=== PATIENT | female | born 1960 | race Caucasian/White ===

== ENCOUNTER → 2016-09-01 19:30 | Outpatient (CLI) | payer MEDICARE | END | disposition home or self-care (01) | LOC: D.SLEEP 19:30 | DX: G47.33 Obstructive sleep apnea (adult) (pediatric) (principal); R53.83 Other fatigue ==

== ENCOUNTER → 2016-10-01 15:15 | Outpatient (CLI) | payer MEDICARE | END | disposition home or self-care (01) | LOC: D.LAB 15:15 | DX: Z11.1 Encounter for screening for respiratory tuberculosis (principal) ==

== ENCOUNTER → 2018-11-30 13:02 | Outpatient (CLI) | payer MEDICARE | END | disposition home or self-care (01) | LOC: D.RAD 13:00 | PROVIDERS: ATTEND Legal Medicine | DX: R13.10 Dysphagia, unspecified (principal) ==

== ENCOUNTER 2019-05-19 14:27 | Inpatient (IN) | payer MEDICARE ==
[~2019-05-19] VITALS: Ht 157.5 cm; Wt 56.7 kg
[2019-05-19] MEDS ORDERED: CYMBALTA60 MG PEG (14:48)
[2019-05-19] MEDS ORDERED: LEVEMIR IN100 UNITS/ SC (14:59)
[2019-05-19] MEDS ORDERED: STOOL SOFTENER250 MG PEG (14:59)
[2019-05-19] MEDS ORDERED: FERROUS SULFAT325 MG PEG (14:59)
[2019-05-19] MEDS ORDERED: LISINOPRIL30 MG PEG (14:59)
[2019-05-19] MEDS ORDERED: CLARITIN 10 MG10 MG PEG (14:59)
[2019-05-19] MEDS ORDERED: SYNTHROID75 MCG PEG (15:00)
[2019-05-19] MEDS ORDERED: METOPROLOL TART25 MG PEG (15:00)
[2019-05-19] MEDS ORDERED: TRAZODONE HCL150 MG PEG (15:01)
[2019-05-19] MEDS ORDERED: ZOCOR40 MG PEG (15:02)
[2019-05-19] MEDS ORDERED: VITAMIN D5000 UNIT PO (15:02)
[2019-05-19] MEDS ORDERED: ZOCOR20 MG PO (15:02)
[2019-05-19] MEDS ORDERED: ZYPREXA10 MG PEG ×2 (15:02→15:03)
[2019-05-19] MEDS ORDERED: ALBUTEROL1.25 MG/3 INH (15:04)
[2019-05-19] MEDS ORDERED: MAG-OX 400 MG400 MG PEG (15:04)
[2019-05-19] MEDS ORDERED: METFORMIN HCL500 M1 PEG (15:04)
[2019-05-19] MEDS ORDERED: BUSPAR5 MG PO (15:05)
[2019-05-19] MEDS ORDERED: MUCINEX DM ER1 EAC1 PO (15:05)
[2019-05-19] MEDS ORDERED: GABAPENTIN100 MG PEG (15:06)
[2019-05-19] MEDS ORDERED: DEPAKOTE SPRIN125 MG PEG (15:06)
[2019-05-19] MEDS ORDERED: NOVOLOG100 UNIT/1 SC (15:07)
[2019-05-19] MEDS ORDERED: MIRALAX17 GM PEG (15:07)
[2019-05-19] MEDS ORDERED: ULTRAM50 MG PEG (15:08)
[2019-05-19] MEDS ORDERED: ZANAFLEX2 M1 PEG (15:08)
[2019-05-19 16:42] LABS: BASOPHILS 0.1 % (0-2); EOSINOPHILS 0.3 % (0-7); HEMATOCRIT 37.2 % (36.0-48.0); HEMOGLOBIN 12.1 g/dL (12-16); IMMATURE GRANULOCYTES 0.1 % (0-5); LYMPHOCYTES 25.7 % (15-50); MCH 28.5 pg (26.0-34.0); MCHC 32.5 g/dL (31.0-37.0); MCV 87.7 fL (80.0-100.0); MEAN PLATELET VOLUME 9.3 fL (7.4-10.4); MONOCYTES 5.9 % (2-11); NEUTROPHILS 67.9 % (40-80); PLATELET COUNT 215 10x3/uL (130-400); RBC 4.24 10x6/uL (4.00-5.40); RDW 13.6 % (11.5-14.5)
[2019-05-19 16:56] LABS: CALC OSMOLALITY 292 mosm/kg (275-300); CALCIUM 9.3 mg/dL (8.5-10.1); CARBON DIOXIDE 32.6 mmol/L (21.0-32.0); CHLORIDE - SERUM 106 mmol/L (98-107); CREATININE - SERUM 0.6 mg/dL (0.6-1.3); GLUCOSE 144 mg/dL (74-106); POTASSIUM - SERUM 3.7 mmol/L (3.5-5.1); SODIUM 145 mmol/L (136-145); UREA NITROGEN 14 mg/dL (7-18); eGFR NON AFRICAN AMERICAN > 90 mL/min (90-120)
[2019-05-19 16:57] LABS: ALKALINE PHOSPHATASE 76 U/L (46-116); ALT (SGPT) 11 U/L (10-68); BILIRUBIN - TOTAL 0.32 mg/dL (0.2-1.3); PROTEIN - SERUM 6.9 g/dL (6.4-8.2)
--- NOTE | 2019-05-19 17:15 | MORECARE ---
CASE MANAGEMENT DISCHARGE SUMMARY PATIENT: CARO HORTON UNIT: [id number] ADM DATE: 05/19/19 AGE: 59 : 58 SEX: F ROOM/BED: D.2203 AUTHOR: MORENITA NELSON PHYSICIAN: REFERRING PHYSICIAN: STELLA VLAENTINO MD DATE OF SERVICE: 05/19/19 Discharge Plan Patient Name: CARO HORTON Facility: [facility]:[place] : 1960 Planned Disposition: Anticipated Discharge Date: Discharge Date: Expected LOS: Initial Reviewer: [email or web address] Initial Review Date: 05/19/2019 Generated: 05/19/19 6:15 pm Patient Name: CARO HORTON Page [id number] at 0077 All edits/amendments must be made on the electronic document DICTATION DATE: 05/19/191714 QA AUTOMATION ENGINEER: NÉSTOR 05/19/191714 RPT#: [id number] NV DATE: STATUS: ADM IN [facility] [address] [place] [address] END OF REPORT
--- NOTE | 2019-05-19 17:45 | NUR ---
PATIENT TO ROOM AT THIS TIME. ASSESSMENT COMPLETE, VS STABLE. UNABLE TO SPEAK FULL SENTENCES. SAYS A FEW WORDS AT THIS TIME. IV INTACT. SKIN CDI. WILL CONTINUE TO MONITOR. CALL LIGHT WITHIN REACH. SUNDEEP ALARM ON.
--- NOTE | 2019-05-19 18:55 | NUR ---
PATIENT IN BED WITH IV INTACT. NO COMPLAINTS OR SIGNS OF DISTRESS. BED ALARM ON. CALL LIGTH WITHIN REACH.
[2019-05-19] MEDS ORDERED: VITAMIN D31000 UNIT PEG (18:57)
--- NOTE | 2019-05-19 19:00 | NUR ---
BEDSIDE REPORT RECEIVED AND CARE OF PT ASSUMED. PT LYING IN SUPINE POSITION YELLING OUT. IV TO RIGHT HAND PATENT WITH NS INFUSING AT 125 ML/HR. WILL MONITOR FOR NEEDS.
[2019-05-19 19:54] VITALS: BP 193/90; BMI 22.9
[2019-05-19 20:00] VITALS: BP 186/89
--- NOTE | 2019-05-19 21:38 | NUR ---
HS MEDICATIONS GIVEN. FSBS 114 THIS CHECK REQUIRING NO COVERAGE PER SLIDING SCALE.
--- NOTE | 2019-05-19 21:55 | NUR ---
CALLED [facility]assie MARTIN [facility] TO REQUEST MED FOR AGGITATION...PT YELLING OUT AND BEING UNCOOPERATIVE WITH CARE. ORDER RECEIVED FOR ATIVAN IV 1 MG Q6HR PRN.
--- NOTE | 2019-05-19 22:00 | NUR ---
PT CHANGED DUE TO INCONTINENCE AND ALL LINENS AND GOWN CHANGED.
--- NOTE | 2019-05-20 01:07 | NUR ---
PT RESTING IN SUPINE POSITION WITH EYES CLOSED.
[2019-05-20 04:00] VITALS: BP 93/57
[2019-05-20 04:55] LABS: BASOPHILS 0.2 % (0-2); EOSINOPHILS 1.1 % (0-7); HEMATOCRIT 35.2 % (36.0-48.0); HEMOGLOBIN 11.4 g/dL (12-16); IMMATURE GRANULOCYTES 0.5 % (0-5); LYMPHOCYTES 28.9 % (15-50); MCH 28.6 pg (26.0-34.0); MCHC 32.4 g/dL (31.0-37.0); MCV 88.2 fL (80.0-100.0); MEAN PLATELET VOLUME 9.8 fL (7.4-10.4); MONOCYTES 8.5 % (2-11); NEUTROPHILS 60.8 % (40-80); PLATELET COUNT 188 10x3/uL (130-400); RBC 3.99 10x6/uL (4.00-5.40); RDW 13.7 % (11.5-14.5); WBC 6.1 10x3/uL (4.8-10.8)
[2019-05-20 05:09] LABS: ALBUMIN 2.7 g/dL (3.4-5.0); ALKALINE PHOSPHATASE 67 U/L (46-116); ALT (SGPT) 11 U/L (10-68); BILIRUBIN - TOTAL 0.32 mg/dL (0.2-1.3); CALC OSMOLALITY 293 mosm/kg (275-300); CALCIUM 8.3 mg/dL (8.5-10.1); CARBON DIOXIDE 30.4 mmol/L (21.0-32.0); CHLORIDE - SERUM 110 mmol/L (98-107); CREATININE - SERUM 0.7 mg/dL (0.6-1.3); GLUCOSE 134 mg/dL (74-106); POTASSIUM - SERUM 3.6 mmol/L (3.5-5.1); PROTEIN - SERUM 5.8 g/dL (6.4-8.2); SODIUM 147 mmol/L (136-145); UREA NITROGEN 12 mg/dL (7-18); eGFR NON AFRICAN AMERICAN 90 mL/min (90-120)
[2019-05-20 08:01] VITALS: BP 166/79
--- NOTE | 2019-05-20 10:04 | NUR ---
RESTING IN BED, NO DSITRESS NOTED, CONT TO MONITOR FOR INCONT., MEDICATED FOR ANXIETY NEEDED, IV INFUSING
[2019-05-20 10:59] VITALS: Ht 157.5 cm; Wt 56.7 kg
[2019-05-20 11:58] VITALS: BP 163/59
--- NOTE | 2019-05-20 16:35 | NUR ---
EVETTE MADE AWARE OF GRAM + COCCI BLOOD CULTURE, NNO
[2019-05-20 16:56] VITALS: BP 168/98
[2019-05-20 19:30] VITALS: BP 180/97
[2019-05-21 00:30] VITALS: BP 190/97
[2019-05-21 04:30] VITALS: BP 165/72
--- NOTE | 2019-05-21 05:00 | NUR ---
PATIENT IN BED SLEPING AT THIS TIME. AT 2009 CALL FOR ONE TIME ORDER FOR ATIVAN 1 MG PT YELLING OUT, REMOVING CLOTHING, PULLING AT LINES. AND B/P OF 180/. EFFICTIVE , LATER B/P 190/ PRN APRESOLINE PER ORDERS EFFICTIVE. IV TO RIGHT HAND WITH NS AT 100ML/HR AND PROCAL AT 50ML/HR. NO REDNESS OC.P AT IV SITE. REMAINS NPO PER ORDERS MOUTH CARE GIVEN.
[2019-05-21 05:53] LABS: BASOPHILS 0.1 % (0-2); EOSINOPHILS 0.9 % (0-7); HEMATOCRIT 34.5 % (36.0-48.0); HEMOGLOBIN 11.4 g/dL (12-16); IMMATURE GRANULOCYTES 0.7 % (0-5); LYMPHOCYTES 19.3 % (15-50); MCH 28.6 pg (26.0-34.0); MCV 86.7 fL (80.0-100.0); MONOCYTES 7.6 % (2-11); NEUTROPHILS 71.4 % (40-80); PLATELET COUNT 199 10x3/uL (130-400); RBC 3.98 10x6/uL (4.00-5.40); RDW 13.6 % (11.5-14.5); WBC 7.5 10x3/uL (4.8-10.8)
[2019-05-21 05:58] LABS: CALCIUM 8.2 mg/dL (8.5-10.1); CARBON DIOXIDE 26.2 mmol/L (21.0-32.0); CHLORIDE - SERUM 105 mmol/L (98-107); GLUCOSE 135 mg/dL (74-106); POTASSIUM - SERUM 3.5 mmol/L (3.5-5.1); SODIUM 141 mmol/L (136-145)
[2019-05-21 06:03] LABS: CALC OSMOLALITY 280 mosm/kg (275-300); CREATININE - SERUM 0.5 mg/dL (0.6-1.3); UREA NITROGEN 8 mg/dL (7-18); eGFR NON AFRICAN AMERICAN > 90 mL/min (90-120)
[2019-05-21 08:40] VITALS: BP 128/70
--- NOTE | 2019-05-21 10:12 | NUR ---
RESTING IN BED, NO DISTRESS NOTED, IV INFUSING PER RIGHT HAND, INCONT B&B, CONT TO MONITOR, PROCAL INFUSING AT 50
[2019-05-21 13:49] VITALS: BP 201/105
--- NOTE | 2019-05-21 14:43 | MORECARE ---
CASE MANAGEMENT DISCHARGE SUMMARY PATIENT: CARO HORTON UNIT: [id number] ADM DATE: 05/19/19 AGE: 59 : 58 SEX: F ROOM/BED: D.2203 AUTHOR: MORENITA NELSON PHYSICIAN: REFERRING PHYSICIAN: ELIANA AGUIRRE MD DATE OF SERVICE: 05/21/19 Discharge Plan Patient Name: CARO HORTON Facility: [facility]:[place] : 1960 Planned Disposition: Anticipated Discharge Date: Discharge Date: Expected LOS: Initial Reviewer: [email or web address] Initial Review Date: 05/19/2019 Generated: 05/21/19 3:42 pm Comments DCP- Discharge Planning Updated by [email or web address]: Montse Alfredo on 05/21/19 1:[address] Patient Name: CARO HORTON Admission Status: ER Accout number: [id number] Admission Date: 05-19-2019 : 1960 Admission Diagnosis: Attending: PATRICIA Current LOS: 2 Anticipated DC Date: Planned Disposition: Primary Insurance: MEDICARE A & B Discharge Planning Comments: CM WENT TO MEET WITH PATIENT ABOUT DC PLANNING/NEEDS. PATIENT WITH AMS NOTED. DOCUMENTATION STATES SHE IS A RESIDENT OF [facility]. CM TO FOLLOW AND ASSIST NEEDED. Cardiac Care Unit Nurse: Montse Paris DP export: 05/19/19 4:15 Patient Name: CARO HORTON Page [phone] at 1443 All edits/amendments must be made on the electronic document DICTATION DATE: 05/21/19 1442 ADJUNCT PROFESSOR OF U.S. HISTORY: NÉSTOR 05/21/19 1442 RPT#: [id number] DC DATE: STATUS: ADM IN [facility] [address] [place] [address] END OF REPORT
[2019-05-21 16:54] VITALS: BP 219/101
--- NOTE | 2019-05-21 18:16 | NUR ---
REPORTED INCREASED BP TO EVETTE, WILL CONT TO MONITOR BP AND GIVE HYDRALIZINE PRN
[2019-05-21 19:30] VITALS: BP 183/103
[2019-05-22] VITALS (14 sets, daily range): BP systolic 107–181; BP diastolic 61–116
--- NOTE | 2019-05-22 02:55 | NUR ---
PATIENT IN BED CONFUSED ON ROOM AIR, IV TO RIGHT HAND WITH NS AT 100 AND PROCAL AT 50 FSBS PER ORDERS, APRESOLINN GIVEN FOR B/P OF 181/118 A T 0037 ATIVAAN 1 MG AT 0037 FOR YELLING OUT , PULLING OFFFF HER CLOUTHING,
[2019-05-22 05:50] LABS: BASOPHILS 0.1 % (0-2); EOSINOPHILS 0.4 % (0-7); HEMATOCRIT 38.4 % (36.0-48.0); HEMOGLOBIN 12.9 g/dL (12-16); IMMATURE GRANULOCYTES 0.6 % (0-5); MCH 29.1 pg (26.0-34.0); MCHC 33.6 g/dL (31.0-37.0); MCV 86.5 fL (80.0-100.0); MEAN PLATELET VOLUME 10.3 fL (7.4-10.4); MONOCYTES 8.5 % (2-11); NEUTROPHILS 75.4 % (40-80); PLATELET COUNT 227 10x3/uL (130-400); RBC 4.44 10x6/uL (4.00-5.40); RDW 13.9 % (11.5-14.5)
[2019-05-22 06:06] LABS: CALC OSMOLALITY 279 mosm/kg (275-300); CALCIUM 8.6 mg/dL (8.5-10.1); CARBON DIOXIDE 22.1 mmol/L (21.0-32.0); CHLORIDE - SERUM 104 mmol/L (98-107); CREATININE - SERUM 0.5 mg/dL (0.6-1.3); GLUCOSE 157 mg/dL (74-106); POTASSIUM - SERUM 3.6 mmol/L (3.5-5.1); SODIUM 140 mmol/L (136-145); UREA NITROGEN 8 mg/dL (7-18); eGFR NON AFRICAN AMERICAN > 90 mL/min (90-120)
--- NOTE | 2019-05-22 07:55 | NUR ---
PATIENT SISTER ADRIANE STATES PATIENT IS A DNR STATUS. I REPLIED WE WOULD HAVE TO HAVE THE DR SET THAT UP. SHE VOISED UNDERSTANDING.
--- NOTE | 2019-05-22 14:55 | NUR ---
FAMILY CONCERNED ABOUT LEFT HAND BEING SWOLLEN AND RED. WILL NOTIFY Nita HICKEY APN
--- NOTE | 2019-05-22 19:47 | NUR ---
WENT TO GET VS FROM SURGERY OFF MACHINE. MACHINE NOT IN ROOM. HUNTED DOWN VS MACHINE THAT CATALYTIC CONVERTER OPERATOR WAS USING. MEMORY WAS WIPED CLEAR. I HAD SEVERAL HOURS WORTH OF VITAL SIGNS TO GET OFF THAT MACHINE. I HAVE 2 VS WRITTEN DOWN
--- NOTE | 2019-05-22 20:00 | NUR ---
ALERT YELLING OUT SPEECH GARBLED UNABLE TO UNDERSTAND, ABD BINDER IN PLACE COVERING PEG TUBE, SEE SHIFT ASSESSMENT, INCONTIENT OF URINE PAD CHANGED, ATIVAN GIVEN FOR AGITATION
[2019-05-23 01:34] VITALS: BP 117/61
[2019-05-23 06:01] VITALS: BP 108/55
[2019-05-23 06:26] LABS: CALCIUM 8.4 mg/dL (8.5-10.1); CARBON DIOXIDE 25.2 mmol/L (21.0-32.0); CHLORIDE - SERUM 104 mmol/L (98-107); GLUCOSE 165 mg/dL (74-106); POTASSIUM - SERUM 3.8 mmol/L (3.5-5.1); SODIUM 139 mmol/L (136-145); eGFR NON AFRICAN AMERICAN 90 mL/min (90-120)
[2019-05-23 06:29] LABS: CALC OSMOLALITY 284 mosm/kg (275-300); CREATININE - SERUM 0.7 mg/dL (0.6-1.3); UREA NITROGEN 20 mg/dL (7-18)
[2019-05-23 06:31] LABS: BASOPHILS 0.1 % (0-2); EOSINOPHILS 0.1 % (0-7); HEMATOCRIT 32.3 % (36.0-48.0); HEMOGLOBIN 10.8 g/dL (12-16); IMMATURE GRANULOCYTES 0.2 % (0-5); LYMPHOCYTES 12.2 % (15-50); MCH 29.3 pg (26.0-34.0); MCHC 33.4 g/dL (31.0-37.0); MCV 87.5 fL (80.0-100.0); MONOCYTES 6.6 % (2-11); NEUTROPHILS 80.8 % (40-80); PLATELET COUNT 199 10x3/uL (130-400); RBC 3.69 10x6/uL (4.00-5.40); RDW 14.4 % (11.5-14.5); WBC 10.9 10x3/uL (4.8-10.8)
--- NOTE | 2019-05-23 07:10 | NUR ---
Nutrition consult: Received consult to begin TF s/p PEG tube placement 05/22/19 RDN will order Glucerna 1.0 to start @ 20 ml/hr with gradual increase to goal rate of 60 ml/hr with 50 ml H2O flush Q [address] RDN following.
[2019-05-23 08:31] VITALS: BP 101/56
[2019-05-23 13:36] VITALS: BP 130/93
--- NOTE | 2019-05-23 13:45 | NUR ---
STARTED TUBE FEEDING PER ORDERS. HOB AT 30 DEGREES. PT RESTING, WILL MONITOR.
[2019-05-23 17:27] VITALS: BP 107/59
[2019-05-23 19:30] VITALS: BP 115/73
--- NOTE | 2019-05-23 20:00 | NUR ---
EYES CLOSED RESP UNLABORED, HOB ELEVATED 30 DEGREES, TUBE FEEDING INFUSING WITHOUT DIFFICULTY AT 30 CC/HR, SEE SHIFT ASSESSMENT, O2 IN USE, WILL MONITOR
--- NOTE | 2019-05-23 21:30 | NUR ---
5 CC RESIDUAL FROM PEG TUBE, TOLERATIGN FEEDING WELL
[2019-05-24 00:30] VITALS: BP 95/44
[2019-05-24 05:00] VITALS: BP 116/62
[2019-05-24 08:11] VITALS: BP 188/81
[2019-05-24 12:30] VITALS: BP 156/72
--- NOTE | 2019-05-24 13:23 | MORECARE ---
CASE MANAGEMENT DISCHARGE SUMMARY PATIENT: CARO HORTON UNIT: [id number] ADM DATE: 05/19/19 AGE: 59 : 58 SEX: F ROOM/BED: D.2203 AUTHOR: MORENITA NELSON PHYSICIAN: REFERRING PHYSICIAN: ELIANA AGUIRRE MD DATE OF SERVICE: 05/24/19 Discharge Plan Patient Name: CARO HORTON Facility: [facility]:[place] : 1960 Planned Disposition: Anticipated Discharge Date: Discharge Date: Expected LOS: Initial Reviewer: [email or web address] Initial Review Date: 05/19/2019 Generated: 05/24/19 2:22 pm Comments DCP- Discharge Planning Updated by [email or web address]: Sujey Posadas on 05/24/19 12:[address] PATIENT HAS DISCHARGE ORDERS THIS AM I HAVE ATTEMPTED TO CALL [facility] 4 TIMES WITH OUT SPEAKING WITH SOMEONE 0900- CALLED FACILITY (DON & NURSING FLOOR) 0934- TEXT SALVADOR 1230- CALLED SALVADOR 1310- CALLED FACILITY & LEFT MESSAGE (NURSING FLOOR) DCP- Discharge Planning Updated by [email or web address]: Montse Alfredo on 05/21/19 1:[address] Patient Name: CARO HORTON Admission Status: ER Accout number: [id number] Admission Date: 05-19-2019 : 1960 Admission Diagnosis: Attending: PATRICIA Current LOS: 2 Anticipated DC Date: Planned Disposition: Primary Insurance: MEDICARE A & B Discharge Planning Comments: CM WENT TO MEET WITH PATIENT ABOUT DC PLANNING/NEEDS. PATIENT WITH AMS NOTED. DOCUMENTATION STATES SHE IS A RESIDENT OF [facility]. CM TO FOLLOW AND ASSIST NEEDED. Certified Midwife: Montse Alfredo Last DP export: 05/21/19 1:43 p Patient Name: CARO HORTON Page [phone] at 1323 All edits/amendments must be made on the electronic document DICTATION DATE: 05/24/19 1322 EARLY CHILDHOOD: NÉSTOR 05/24/19 1322 RPT#: [id number] DC DATE: STATUS: ADM IN [facility] [address] [place] [address] END OF REPORT
--- NOTE | 2019-05-24 16:01 | MORECARE ---
CASE MANAGEMENT DISCHARGE SUMMARY PATIENT: CARO HORTON UNIT: [id number] ADM DATE: 05/19/19 AGE: 59 : 58 SEX: F ROOM/BED: D.2203 AUTHOR: OMAR,DOC PHYSICIAN: REFERRING PHYSICIAN: ELIANA AGUIRRE MD DATE OF SERVICE: 05/24/19 Discharge Plan Patient Name: CARO HORTON Facility: [facility]:[place] : 1960 Planned Disposition: Anticipated Discharge Date: Discharge Date: Expected LOS: Initial Reviewer: [email or web address] Initial Review Date: 05/19/2019 Generated: 05/24/19 5:00 pm Comments DCP- Discharge Planning Updated by [email or web address]: Sujey Posadas on 05/24/19 2:[address] patient to go to a terminal press operator bed DCP- Discharge Planning Updated by [id number]: Sujey Posadas on 05/24/19 2:[address] at 1455 spoke with a person at [facility], they stated that they could not get the patients nutrition for 2-3 days. Silvia with [facility] called and she has brought 3 days worth of nutrition to be sent with patient. Patient will be transported via EMS. I called patients sister Crista Lisa to let her know about discharge. IMM served and explained via phone with sister. Copy will be mailed to her at [address] [facility] [phone]. patient is unable to sign and Crista is her guardian. CM to follow and assist as needed DCP- Discharge Planning Updated by [id number]: Sujey Posadas on 05/24/19 12:[address] PATIENT HAS DISCHARGE ORDERS THIS AM I HAVE ATTEMPTED TO CALL [facility] 4 TIMES WITH OUT SPEAKING WITH SOMEONE 0900- CALLED FACILITY (DON & NURSING FLOOR) 0934- TEXT SALVADOR 1230- CALLED SALVADOR 1310- CALLED FACILITY & LEFT MESSAGE (NURSING FLOOR) DCP- Discharge Planning Updated by [email or web address]: Montse Alfredo on 05/21/19 1:[address] Patient Name: CARO HORTON Admission Status: ER Accout number: [id number] Admission Date: 05-19-2019 : 1960 Admission Diagnosis: Attending: PATRICIA Current LOS: 2 Anticipated DC Date: Planned Disposition: Primary Insurance: MEDICARE A & B Discharge Planning Comments: CM WENT TO MEET WITH PATIENT ABOUT DC PLANNING/NEEDS. PATIENT WITH AMS NOTED. DOCUMENTATION STATES SHE IS A RESIDENT OF [facility]. CM TO FOLLOW AND ASSIST NEEDED. Behavior Analyst: Montse Paris DP export: 05/24/19 12:22 p Patient Name: CARO HORTON Page 77194 at 1601 All edits/amendments must be made on the electronic document DICTATION DATE: 05/24/19 1601 STAVE INSPECTOR: NÉSTOR 05/24/19 1601 RPT#: [id number] DC DATE: STATUS: ADM IN [facility] [address] [place] [address] END OF REPORT
--- NOTE | 2019-05-24 16:19 | MORECARE ---
CASE MANAGEMENT DISCHARGE SUMMARY PATIENT: CARO HORTON UNIT: [id number] ADM DATE: 05/19/19 AGE: 59 : 58 SEX: F ROOM/BED: D.2203 AUTHOR: OMAR,DOC PHYSICIAN: REFERRING PHYSICIAN: ELIANA AGUIRRE MD DATE OF SERVICE: 05/24/19 Discharge Plan Patient Name: CARO HORTON Facility: [facility]:[place] : 1960 Planned Disposition: Anticipated Discharge Date: Discharge Date: Expected LOS: Initial Reviewer: [email or web address] Initial Review Date: 05/19/2019 Generated: 05/24/19 5:18 pm Comments DCP- Discharge Planning Updated by [email or web address]: Sujey Posadas on 05/24/19 2:[address] patient to go to a jute bag sewer bed DCP- Discharge Planning Updated by [email or web address]: Sujey Posadas on 05/24/19 2:[address] at 1455 spoke with a person at [facility], they stated that they could not get the patients nutrition for 2-3 days. Silvia with [facility] called and she has brought 3 days worth of nutrition to be sent with patient. Patient will be transported via EMS. I called patients sister Crista Lisa to let her know about discharge. IMM served and explained via phone with sister. Copy will be mailed to her at [address] [facility] [phone]. patient is unable to sign and Crista is her guardian. CM to follow and assist as needed DCP- Discharge Planning Updated by [email or web address]: Sujey Posadas on 05/24/19 12:[address] PATIENT HAS DISCHARGE ORDERS THIS AM I HAVE ATTEMPTED TO CALL [facility] 4 TIMES WITH OUT SPEAKING WITH SOMEONE 0900- CALLED FACILITY (DON & NURSING FLOOR) 0934- TEXT SALVADOR 1230- CALLED SAL[facility]ADOR 1310- CALLED FACILITY & LEFT MESSAGE (NURSING FLOOR) DCP- Discharge Planning Updated by [id number]: Montse Alfredo on 05/21/19 1:[address] Patient Name: CARO HORTON Admission Status: ER Accout number: [id number] Admission Date: 05-19-2019 : 1960 Admission Diagnosis: Attending: PATRICIA Current LOS: 2 Anticipated DC Date: Planned Disposition: Primary Insurance: MEDICARE A & B Discharge Planning Comments: CM WENT TO MEET WITH PATIENT ABOUT DC PLANNING/NEEDS. PATIENT WITH AMS NOTED. DOCUMENTATION STATES SHE IS A RESIDENT OF [facility]. CM TO FOLLOW AND ASSIST NEEDED. Broadband Technician: Montse Alfredo External Providers External Provider: [facility] Next Contact Date: Service Request Date: Service Type: Resolution: Reviewer: Comments: Last DP export: 05/24/19 3:01 p Patient Name: CARO HORTON Page 85289 at 1619 All edits/amendments must be made on the electronic document DICTATION DATE: 05/24/191617 FIBERGLASS MACHINE OPERATOR: NÉSTOR 05/24/191617 RPT#: [id number] DC DATE: STATUS: ADM IN [facility] [address] [place] [address] END OF REPORT
[2019-05-24 17:10] VITALS: BP 147/72
--- NOTE | 2019-05-24 18:51 | NUR ---
PT ESCORTED OUT BY STRETCHER.
--- NOTE | 2019-05-28 16:19 | MORECARE ---
CASE MANAGEMENT DISCHARGE SUMMARY PATIENT: CARO HORTON UNIT: [id number] ADM DATE: 05/19/19 AGE: 59 : 58 SEX: F ROOM/BED: D.2203 AUTHOR: OMAR,DOC PHYSICIAN: REFERRING PHYSICIAN: ELIANA AGUIRRE MD DATE OF SERVICE: 05/28/19 Discharge Plan Patient Name: CARO HORTON Facility: [facility]:[place] : 1960 Planned Disposition: Anticipated Discharge Date: Discharge Date: 05/24/2019 Expected LOS: Initial Reviewer: [email or web address] Initial Review Date: 05/19/2019 Generated: 05/28/19 5:19 pm Comments DCP- Discharge Planning Updated by [id number]: Sujey Posadas on 05/24/19 2:[address] patient to go to a skilled nursing bed DCP- Discharge Planning Updated by [id number]: Sujey Posadas on 05/24/19 2:[address] at 1455 spoke with a person at [facility], they stated that they could not get the patients nutrition for 2-3 days. Silvia with [facility] called and she has brought 3 days worth of nutrition to be sent with patient. Patient will be transported via EMS. I called patients sister Crista Lisa to let her know about discharge. IMM served and explained via phone with sister. Copy will be mailed to her at [address] [facility] [phone]. patient is unable to sign and Crista is her guardian. CM to follow and assist as needed DCP- Discharge Planning Updated by [email or web address]: Sujey Posadas on 05/24/19 12:[address] PATIENT HAS DISCHARGE ORDERS THIS AM I HAVE ATTEMPTED TO CALL [facility] 4 TIMES WITH OUT SPEAKING WITH SOMEONE 0900- CALLED FACILITY (DON & NURSING FLOOR) 0934- TEXT SALVADOR 1230- CALLED SALVADOR 1310- CALLED FACILITY & LEFT MESSAGE (NURSING FLOOR) DCP- Discharge Planning Updated by [id number]: Montse Alfredo on 05/21/19 1:[address] Patient Name: CARO HORTON Admission Status: ER Accout number: [id number] Admission Date: 05-19-2019 : 1960 Admission Diagnosis: Attending: PATRICIA Current LOS: 2 Anticipated DC Date: Planned Disposition: Primary Insurance: MEDICARE A & B Discharge Planning Comments: CM WENT TO MEET WITH PATIENT ABOUT DC PLANNING/NEEDS. PATIENT WITH AMS NOTED. DOCUMENTATION STATES SHE IS A RESIDENT OF [facility]. CM TO FOLLOW AND ASSIST NEEDED. Custom Decorating Consultant: Montse BECKER export: 05/24/19 3:18 p Patient Name: CARO HORTON Page 63312 at 1619 All edits/amendments must be made on the electronic document DICTATION DATE: 05/28/191618 DUBBING MACHINE OPERATOR: NÉSTOR 05/28/199 RPT#: [id number] DC DATE:05/24/19 STATUS: DIS IN [facility] [address] [place] [address] END OF REPORT
== END 2019-05-24 18:52 | disposition home or self-care (01) | DRG 391 ==
LOC: D.ER 14:27 → D.MS 15:56
PROVIDERS: Family Medicine; Surgery; ADMIT Emergency Medicine; ATTEND Emergency Medicine
PROC: 0DH63UZ Insertion of Feeding Device into Stomach, Percutaneous Approach (ICD-10-PCS; principal; 2019-05-22 11:08)
DX: R13.10 Dysphagia, unspecified (principal); R53.2 Functional quadriplegia; F84.0 Autistic disorder; R62.7 Adult failure to thrive; Z68.22 Body mass index [BMI] 22.0-22.9, adult; G80.9 Cerebral palsy, unspecified; F20.9 Schizophrenia, unspecified; E11.9 Type 2 diabetes mellitus without complications; E03.9 Hypothyroidism, unspecified; I50.9 Heart failure, unspecified

== ENCOUNTER → 2019-06-27 12:20 | Outpatient (CLI) | payer MEDICARE ==
[2019-05-20 10:59] VITALS: BMI 22.8
[~2019-06-27 12:20] MED LIST: ALBUTEROL1.25 MG/3 INH; BUSPAR5 MG PO; CLARITIN 10 MG10 MG PEG; CYMBALTA60 MG PEG; DEPAKOTE SPRIN125 MG PEG; FERROUS SULFAT325 MG PEG; GABAPENTIN100 MG PEG; LEVEMIR IN100 UNITS/ SC; LISINOPRIL30 MG PEG; MAG-OX 400 MG400 MG PEG; METFORMIN HCL500 M1 PEG; METOPROLOL TART25 MG PEG; MIRALAX17 GM PEG; MUCINEX DM ER1 EAC1 PO; NOVOLOG100 UNIT/1 SC; STOOL SOFTENER250 MG PEG; SYNTHROID75 MCG PEG; TRAZODONE HCL150 MG PEG; ULTRAM50 MG PEG; VITAMIN D31000 UNIT PEG; VITAMIN D5000 UNIT PO; ZANAFLEX2 M1 PEG; ZOCOR20 MG PO; ZOCOR40 MG PEG; ZYPREXA10 MG PEG
== END | disposition home or self-care (01) ==
LOC: D.CT 12:20
PROVIDERS: ATTEND Legal Medicine
DX: M62.81 Muscle weakness (generalized) (principal)

== ENCOUNTER 2020-11-07 12:21 | Emergency (ER) | payer MEDICARE ==
[~2020-11-07 12:21] MED LIST changes: +CYMBALTA30 MG PEG; -CYMBALTA60 MG PEG; -GABAPENTIN100 MG PEG; +NEURONTIN 300300 MG PEG
[2020-11-07 12:24] VITALS: Ht 157.5 cm
[2020-11-07 14:01] VITALS: BP 176/92
[2020-11-07] MEDS ORDERED: BUSPAR5 MG PEG (14:46)
[2020-11-07] MEDS ORDERED: FENTANYL1 EAC7 TRANSDERM (15:09)
[2020-11-07] MEDS ORDERED: FUROSEMIDE20 MG PEG (15:11)
[2020-11-07] MEDS ORDERED: LORAZEPAM1 MG/0.5 M PO (15:15)
[2020-11-07] MEDS ORDERED: MORPHINE 100MG/5ML SL (15:22)
[2020-11-07] MEDS ORDERED: HYDROCODON-ACE1 EA10 PEG (15:23)
== END 2020-11-07 16:12 ==
LOC: D.ER 12:21
DX: Z43.1 Encounter for attention to gastrostomy (principal); E03.9 Hypothyroidism, unspecified; E11.9 Type 2 diabetes mellitus without complications; Z79.4 Long term (current) use of insulin; G80.9 Cerebral palsy, unspecified

== ENCOUNTER 2020-11-07 17:11 | Emergency (ER) | payer MEDICARE ==
[~2020-11-07] VITALS: Ht 157.5 cm; Wt 90.9 kg
[~2020-11-07 17:11] MED LIST changes: +BUSPAR5 MG PEG; +FENTANYL1 EAC7 TRANSDERM; +FUROSEMIDE20 MG PEG; +HYDROCODON-ACE1 EA10 PEG; +LORAZEPAM1 MG/0.5 M PO; +MORPHINE 100MG/5ML SL
[2020-11-07 17:14] VITALS: Ht 157.5 cm; Wt 90.9 kg
[2020-11-07 22:00] VITALS: BP 142/82
== END 2020-11-07 21:00 | disposition home or self-care (01) ==
LOC: D.ER 17:11
DX: Z43.1 Encounter for attention to gastrostomy (principal)